=== PATIENT | male | born 1945 | race Caucasian/White ===

== ENCOUNTER 2018-11-01 08:59 | Inpatient (IN) | payer MEDICARE, OTHER ==
[2018-11-01] MEDS ORDERED: VASOTEC10 MG PO (09:06)
[2018-11-01] MEDS ORDERED: GLUCOPHAGE500 MG PO (09:06)
[2018-11-01] MEDS ORDERED: GLUCOTROL 5 MG T5 MG PO (09:06)
[2018-11-01] MEDS ORDERED: BAYER CHEWABLE81 MG PO (09:07)
[2018-11-01] MEDS ORDERED: LEXAPRO10 MG (09:07)
[2018-11-01] MEDS ORDERED: LIPITOR10 MG PO (09:07)
[2018-11-01] MEDS ORDERED: CYCLOBENZAPRINE10 MG (09:08)
[2018-11-01] MEDS ORDERED: ZOLOFT25 MG (09:08)
[2018-11-01 10:13] LABS: BASOPHILS 0.3 % (0-2); EOSINOPHILS 0.8 % (0-7); HEMATOCRIT 46.5 % (42.0-54.0); HEMOGLOBIN 16.2 g/dL (13.5-17.5); LYMPHOCYTES 9.5 % (15-50); MCH 31.2 pg (26.0-34.0); MCHC 34.8 g/dL (31.0-37.0); MCV 89.4 fL (80.0-100.0); MEAN PLATELET VOLUME 10.4 fL (7.4-10.4); MONOCYTES 8.5 % (2-11); NEUTROPHILS 79.9 % (40-80); PLATELET COUNT 168 10x3/uL (130-400); RDW 12.9 % (11.5-14.5); WBC 8.9 10x3/uL (4.8-10.8)
[2018-11-01 10:27] LABS: ALBUMIN 3.7 g/dL (3.4-5.0); ANION GAP 15.4 mmol/L (8-16); BILIRUBIN - TOTAL 0.55 mg/dL (0.2-1.3); CALCIUM 8.7 mg/dL (8.5-10.1); CARBON DIOXIDE 25.8 mmol/L (21.0-32.0); CREATININE - SERUM 1.4 mg/dL (0.6-1.3); POTASSIUM - SERUM 4.2 mmol/L (3.5-5.1); PROTEIN - SERUM 7.7 g/dL (6.4-8.2)
[2018-11-01 11:03] LABS: CKMB 0.2 U/L (0.0-3.6); CREATINE KINASE 73 UL (21-232); MAGNESIUM - SERUM 2.1 mg/dL (1.8-2.4); TROPONIN-I < 0.017 ng/mL (0.000-0.060)
[2018-11-01 11:21] LABS: APPEARANCE CLEAR (CLEAR); BILIRUBIN NEGATIVE (NEGATIVE); COLOR DARK YELLOW (YELLOW); GLUCOSE NEGATIVE (NEGATIVE); KETONE NEGATIVE (NEGATIVE); NITRITE NEGATIVE (NEGATIVE); PROTEIN 2+ mg/dL (NEGATIVE)
[2018-11-01 11:22] LABS: AMORPHOUS SEDIMENT <1+ /lpf (NONE SEEN); BACTERIA FEW /hpf (NONE SEEN); EPITHELIAL CELLS RARE /hpf (0-5)
--- NOTE | 2018-11-01 16:28 | MORECARE ---
CASE MANAGEMENT DISCHARGE SUMMARY PATIENT: MARIUM RAINES UNIT: [id number] ADM DATE: 11/01/18 AGE: 73 : 45 SEX: M ROOM/BED: D.2231 AUTHOR: MADAIDOC PHYSICIAN: REFERRING PHYSICIAN: KAVITHA CARVAJAL MD DATE OF SERVICE: 11/01/18 Discharge Plan Patient Name: MARIUM RAINES Facility: [facility]:[place] : 1945 Planned Disposition: Home Anticipated Discharge Date: 11/03/18 Discharge Date: Expected LOS: 2 Initial Reviewer: [email or web address] Initial Review Date: 11/01/2018 Generated: 11/01/18 5:28 pm DCP- Discharge Planning Updated by [email or web address]: Nicolle Mast on 11/01/18 3:[address] Patient Name: MARIUM RAINES Admission Status: ER Accout number: [id number] Admission Date: 11-01-2018 : 1945 Admission Diagnosis: Attending: KAVITHA CARVAJAL Current LOS: 1 Anticipated DC Date: 11-03-2018 Planned Disposition: Home Primary Insurance: MEDICARE A & B Discharge Planning Comments: CM met with patient to complete initial dc planning assessment. CM educated patient on the CM role and verbal consent given by patient to complete assessment. Patient lives at home with his . At discharge patient plans to return home and feels this is a safe discharge. CM discussed availability of home health, rehab services, and medical equipment. Patient denied known discharge needs at this time. CM will continue to follow and will assist as needed with dc plans/needs. Wood Drilling Machine Operator: Nicolle Mast RN, [facility] DCPIA - Discharge Planning Initial Assessment Updated by [email or web address]: Nicolle Mast on 11/01/18 4:24 pm * Is the patient Alert and Oriented? Yes * How many steps to enter\exit or inside your home? * PCP Dr. Newberry * Pharmacy [facility] * Preadmission Environment Home with Family * ADLs Independent * Equipment None * List name and contact numbers for known caregivers / representatives who currently or will assist patient after discharge: Maliha Raines - spouse - [phone] * Verbal permission to speak to the caregivers and representatives has been obtained from the patient. Yes * Community resources currently utilized None * Additional services required to return to the preadmission environment? No * Can the patient safely return to the preadmission environment? Yes * Has this patient been hospitalized within the prior 30 days at any hospital? No Patient Name: MARIUM RAINES Page [id number] at 1628 All edits/amendments must be made on the electronic document DICTATION DATE: 11/01/181627 MANAGER SALES SUPPORT: ASHVIN 11/01/181627 RPT#: [id number] DC DATE: STATUS: ADM IN [facility] [address] [place] [address] END OF REPORT
[2018-11-01 16:40] VITALS: BP 133/74; BMI 33.0
[2018-11-01 20:00] VITALS: BP 140/79
[2018-11-02 04:00] VITALS: BP 128/69
[2018-11-02 05:40] LABS: BASOPHILS 0 % (0-2); EOSINOPHILS 0 % (0-7); HEMATOCRIT 47.3 % (42.0-54.0); HEMOGLOBIN 16.3 g/dL (13.5-17.5); LYMPHOCYTES 11.1 % (15-50); MCH 30.9 pg (26.0-34.0); MCHC 34.5 g/dL (31.0-37.0); MCV 89.6 fL (80.0-100.0); MEAN PLATELET VOLUME 10.9 fL (7.4-10.4); MONOCYTES 2.2 % (2-11); NEUTROPHILS 85.7 % (40-80); PLATELET COUNT 174 10x3/uL (130-400); RBC 5.28 10x6/uL (4.20-6.10); RDW 12.7 % (11.5-14.5)
[2018-11-02 05:59] LABS: ALBUMIN 3.5 g/dL (3.4-5.0); ANION GAP 16.1 mmol/L (8-16); BILIRUBIN - TOTAL 0.35 mg/dL (0.2-1.3); CALCIUM 8.4 mg/dL (8.5-10.1); CARBON DIOXIDE 25.5 mmol/L (21.0-32.0); CREATININE - SERUM 1.4 mg/dL (0.6-1.3); POTASSIUM - SERUM 3.6 mmol/L (3.5-5.1); PROTEIN - SERUM 8.1 g/dL (6.4-8.2)
[2018-11-02 06:08] LABS: WBC 4.1 10x3/uL (4.8-10.8)
[2018-11-02 09:34] VITALS: BP 142/68; BP 144/54
[2018-11-02 13:35] VITALS: BMI 33.0
[2018-11-02 13:38] VITALS: BP 138/72
[2018-11-02 18:14] VITALS: BP 113/62
[2018-11-02 20:00] VITALS: BP 127/62
[2018-11-03 04:00] VITALS: BP 124/62
[2018-11-03 05:48] LABS: ALBUMIN 3.2 g/dL (3.4-5.0); ANION GAP 15.5 mmol/L (8-16); BILIRUBIN - TOTAL 0.3 mg/dL (0.2-1.3); CARBON DIOXIDE 24.2 mmol/L (21.0-32.0); CREATININE - SERUM 1.2 mg/dL (0.6-1.3); POTASSIUM - SERUM 3.7 mmol/L (3.5-5.1)
[2018-11-03 08:04] LABS: BASOPHILS 0.4 % (0-2); HEMATOCRIT 43.1 % (42.0-54.0); HEMOGLOBIN 14.9 g/dL (13.5-17.5); MCH 30.3 pg (26.0-34.0); MCHC 34.6 g/dL (31.0-37.0); MCV 87.8 fL (80.0-100.0); MEAN PLATELET VOLUME 10.9 fL (7.4-10.4); MONOCYTES 11.3 % (2-11); NEUTROPHILS 63.3 % (40-80); PLATELET COUNT 189 10x3/uL (130-400); RBC 4.91 10x6/uL (4.20-6.10); RDW 12.7 % (11.5-14.5)
[2018-11-03 08:08] LABS: WBC 7.3 10x3/uL (4.8-10.8)
[2018-11-03 09:37] VITALS: BP 151/69
[2018-11-03] MEDS ORDERED: FLORAJEN3 CAPS460 MG PO (09:52)
[2018-11-03] MEDS ORDERED: DOXYCYCLINE HY100 M2 PO (09:52)
[2018-11-03] MEDS ORDERED: MUCINEX DM ER1 EAC1 PO (09:52)
[2018-11-03] MEDS ORDERED: PROTONIX40 MG PO (09:52)
[2018-11-03] MEDS ORDERED: TESSALON PERLE100 MG PO (09:52)
[2018-11-03] MEDS ORDERED: OMNICEF300 MG PO (09:53)
--- NOTE | 2018-11-03 11:46 | MORECARE ---
CASE MANAGEMENT DISCHARGE SUMMARY PATIENT: MARIUM RAINES UNIT: [id number] ADM DATE: 11/01/18 AGE: 73 : 45 SEX: M ROOM/BED: D.2231 AUTHOR: SONA AJ PHYSICIAN: REFERRING PHYSICIAN: KAVITHA CARVAJAL MD DATE OF SERVICE: 11/03/18 Discharge Plan Patient Name: MARIUM RAINES Facility: [facility]:[place] : 1945 Planned Disposition: Home Anticipated Discharge Date: 11/03/18 Discharge Date: Expected LOS: 2 Initial Reviewer: [email or web address] Initial Review Date: 11/01/2018 Generated: 11/03/18 12:46 pm Comments DCP- Discharge Planning Updated by [email or web address]: Nakita Arriaga on 11/03/18 10:[address] Patient Name: MARIUM RAINES Encounter No: [id number] : 1945 Primary Insurance: MEDICARE A & B Anticipated DC Date: 11-03-2018 Planned Disposition: Home External Planned Provider: : DCP follow-up note: Patient and family in agreement with discharge plan. No changes to plan. Case management will follow and assist as needed. Nakita Arriaga DCP- Discharge Planning Updated by [email or web address]: Nicolle Mast on 11/01/18 3:[address] Patient Name: MARIUM RAINES Admission Status: ER Accout number: [id number] Admission Date: 11-01-2018 : 1945 Admission Diagnosis: Attending: KAVITHA CARVAJAL Current LOS: 1 Anticipated DC Date: 11-03-2018 Planned Disposition: Home Primary Insurance: MEDICARE A & B Discharge Planning Comments: CM met with patient to complete initial dc planning assessment. CM educated patient on the CM role and verbal consent given by patient to complete assessment. Patient lives at home with his . At discharge patient plans to return home and feels this is a safe discharge. CM discussed availability of home health, rehab services, and medical equipment. Patient denied known discharge needs at this time. CM will continue to follow and will assist as needed with dc plans/needs. Clinical Trial Head: Nicolle Mast RN, [facility] DCPIA - Discharge Planning Initial Assessment Updated by [email or web address]: Nicolle Mast on 11/01/18 4:24 pm * Is the patient Alert and Oriented? Yes * How many steps to enter\exit or inside your home? * PCP Dr. Newberry * Pharmacy Home [facility] * Preadmission Environment Home with Family * ADLs Independent * Equipment None * List name and contact numbers for known caregivers / representatives who currently or will assist patient after discharge: Maliha Raines - spouse - [phone] * Verbal permission to speak to the caregivers and representatives has been obtained from the patient. Yes * Community resources currently utilized None * Additional services required to return to the preadmission environment? No * Can the patient safely return to the preadmission environment? Yes * Has this patient been hospitalized within the prior 30 days at any hospital? No Last DP export: 11/01/18 3:28 p Patient Name: MARIUM RAINES Page 43877 at 1146 All edits/amendments must be made on the electronic document DICTATION DATE: 11/03/18 1145 CHECK WRITER: ASHVIN 11/03/18 1145 RPT#: [id number] DC DATE: STATUS: ADM IN [facility] [address] [place] [address] END OF REPORT
== END 2018-11-03 13:19 | disposition home or self-care (01) | DRG 194 ==
LOC: D.ER 08:59 → D.EDHOLD 15:49 → D.MS 15:56
PROVIDERS: Family Medicine; ADMIT Internal Medicine Nephrology
DX: J18.9 Pneumonia, unspecified organism (principal); N17.9 Acute kidney failure, unspecified; E87.1 Hypo-osmolality and hyponatremia; E11.69 Type 2 diabetes mellitus with other specified complication; D38.1 Neoplasm of uncertain behavior of trachea, bronchus and lung; F32.9 Major depressive disorder, single episode, unspecified; E66.01 Morbid (severe) obesity due to excess calories; Z68.33 Body mass index [BMI] 33.0-33.9, adult

== ENCOUNTER → 2018-12-22 10:02 | Outpatient (CLI) | payer MEDICARE, OTHER ==
[~2018-12-22 10:02] MED LIST: BAYER CHEWABLE81 MG PO; CYCLOBENZAPRINE10 MG; DOXYCYCLINE HY100 M2 PO; FLORAJEN3 CAPS460 MG PO; GLUCOPHAGE500 MG PO; GLUCOTROL 5 MG T5 MG PO; LEXAPRO10 MG; LIPITOR10 MG PO; MUCINEX DM ER1 EAC1 PO; OMNICEF300 MG PO; PROTONIX40 MG PO; TESSALON PERLE100 MG PO; VASOTEC10 MG PO; ZOLOFT25 MG
== END | disposition home or self-care (01) ==
LOC: D.CT 10:00
PROVIDERS: ATTEND Internal Medicine Pulmonary Disease
DX: J18.9 Pneumonia, unspecified organism (principal)

== ENCOUNTER 2019-08-15 08:10 | Observation (INO) | payer MEDICARE, OTHER ==
[2019-08-15] VITALS (9 sets, daily range): BP systolic 105–134; BP diastolic 56–79; Ht 177.8 cm; Wt 111.7 kg
[~2019-08-15] VITALS: Ht 177.8 cm; Wt 111.7 kg
[2019-08-15 09:08] LABS: BASOPHILS 0.3 % (0-2); EOSINOPHILS 4.1 % (0-7); HEMATOCRIT 39.4 % (42.0-54.0); HEMOGLOBIN 13.5 g/dL (13.5-17.5); IMMATURE GRANULOCYTES 0.7 % (0-5); LYMPHOCYTES 11.2 % (15-50); MCH 31.3 pg (26.0-34.0); MCHC 34.3 g/dL (31.0-37.0); MCV 91.2 fL (80.0-100.0); MEAN PLATELET VOLUME 10.4 fL (7.4-10.4); MONOCYTES 7.1 % (2-11); NEUTROPHILS 76.6 % (40-80); RBC 4.32 10x6/uL (4.20-6.10); RDW 12.3 % (11.5-14.5); WBC 7.7 10x3/uL (4.8-10.8)
[2019-08-15 09:21] LABS: CALC OSMOLALITY 282 mosm/kg (275-300); CALCIUM 8.3 mg/dL (8.5-10.1); CARBON DIOXIDE 22.7 mmol/L (21.0-32.0); CHLORIDE - SERUM 97 mmol/L (98-107); CREATININE - SERUM 1.6 mg/dL (0.6-1.3); POTASSIUM - SERUM 3.8 mmol/L (3.5-5.1); SODIUM 133 mmol/L (136-145); UREA NITROGEN 43 mg/dL (7-18); eGFR NON AFRICAN AMERICAN 45 mL/min (90-120)
[2019-08-15 09:24] LABS: PLATELET COUNT 118 10x3/uL (130-400)
[2019-08-15 09:27] LABS: GLUCOSE 212 mg/dL (74-106)
[2019-08-15 09:39] LABS: ALBUMIN 3.3 g/dL (3.4-5.0); ALKALINE PHOSPHATASE 83 U/L (30-120); ALT (SGPT) 32 U/L (10-68); BILIRUBIN - TOTAL 0.91 mg/dL (0.2-1.3); CKMB 0.4 U/L (0.0-3.6); CREATINE KINASE 55 UL (21-232); PRO BNP 363 pg/mL (0-125); PROTEIN - SERUM 7.1 g/dL (6.4-8.2); TROPONIN-I < 0.017 ng/mL (0.000-0.060)
--- NOTE | 2019-08-15 09:50 | NUR ---
PT REPORTS INTERMITTANT CHEST PAIN THAT HE DESCRIBES "HEAVINESS" THAT WAKES HIM FROM SLEEP. PT ALSO REPORTS THAT HE HAS HAD EPISODES OF NAUSEA AND VOMITING WELL GENERAL MALAISE.
[2019-08-15 09:57] LABS: APPEARANCE CLEAR (CLEAR); BILIRUBIN NEGATIVE (NEGATIVE); COLOR YELLOW (YELLOW); GLUCOSE NEGATIVE (NEGATIVE); KETONE NEGATIVE (NEGATIVE); NITRITE NEGATIVE (NEGATIVE); PROTEIN TRACE mg/dL (NEGATIVE); RED CELLS - URINE OCC /hpf (0-5); UROBILINOGEN NORMAL (NORMAL); WHITE CELLS - URINE OCC /hpf (NEGATIVE)
[2019-08-15 09:58] LABS: BACTERIA FEW /hpf (NEGATIVE); EPITHELIAL CELLS 0-5 /hpf (0-5)
[2019-08-15] MEDS ORDERED: VASOTEC10 MG PO (10:31)
--- NOTE | 2019-08-15 11:11 | NUR ---
PT NS INFUSING UPON TRANSFER TO FLOOR
[2019-08-15 11:27] LABS: CKMB 0.2 U/L (0.0-3.6); CREATINE KINASE 56 UL (21-232)
[2019-08-15 11:30] LABS: TROPONIN-I < 0.017 ng/mL (0.000-0.060)
--- NOTE | 2019-08-15 14:25 | NUR ---
PT ARRIVED TO ROOM VIA WHEELCHAIR FROM E.R. PT A&O, CONVERSANT. AT SIDE. ABLE TO TRANSFER SELF FROM CHAIR TO BED. PLACED ON BEDSIDE MONITORING. ORIENTED TO UNIT. TAKING BELONGINGS HOME EXCEPT HIS BLACK IPHONE, GOLD [place] BAND, SILVER/[place] BAND. SECURITY PIN PROVIDED TO ALONG WITH COPY OF VISITATION SCHEDULE. BED LOW CALL LIGHT IN REACH.
--- NOTE | 2019-08-15 16:28 | NUR ---
PT UP TO URINATE. 350 CLEAR CONCENTRATED URINE. PEDIGREE TRACER NOW AT BEDSIDE FOR BLOOD DRAW.
[2019-08-15 17:09] LABS: CKMB 0.8 U/L (0.0-3.6); CREATINE KINASE 38 UL (21-232); TROPONIN-I 0.032 ng/mL (0.000-0.060)
--- NOTE | 2019-08-15 19:00 | NUR ---
REPORT RECEIVED. PT RESTING IN BED, AAOX4. NO ACUTE DISTRESS NOTED. PIV IN LT HAND INFUSING, SEE IV FLOWSHEET. ASSESSMENT COMPLETED, SEE FLOWSHEET. WILL CONTINUE TO MONITOR.
[2019-08-15 20:45] LABS: APPEARANCE CLEAR (CLEAR); BILIRUBIN NEGATIVE (NEGATIVE); COLOR YELLOW (YELLOW); GLUCOSE NEGATIVE (NEGATIVE); KETONE NEGATIVE (NEGATIVE); NITRITE NEGATIVE (NEGATIVE); PROTEIN TRACE mg/dL (NEGATIVE); SPECIFIC GRAVITY 1.015 (1.005-1.020); UROBILINOGEN NORMAL (NORMAL)
--- NOTE | 2019-08-15 21:00 | NUR ---
PT RESTING IN BED, PM MEDS TAKEN WITHOUT DIFFICULTY. WILL CONTINUE TO MONITOR.
--- NOTE | 2019-08-15 23:00 | NUR ---
PT RESTING IN BED, C/O SLIGHT HEADACHE. WILL CONTINUE TO MONITOR.
[2019-08-15 23:12] LABS: CKMB 0.5 U/L (0.0-3.6); CREATINE KINASE 65 UL (21-232)
[2019-08-15 23:13] LABS: TROPONIN-I < 0.017 ng/mL (0.000-0.060)
--- NOTE | 2019-08-16 01:00 | NUR ---
PT RESTING IN BED, NO ACUTE DISTRESS NOTED. WILL CONTINUE TO MONITOR.
--- NOTE | 2019-08-16 02:10 | NUR ---
PT PULLED OUT PIV ON ACCIDENT, NEW PIV INITIATED IN LEFT WRIST. OLD CATH TIP INTACT AND DISPOSED OF.
--- NOTE | 2019-08-16 03:00 | NUR ---
PT RESTING IN BED, NO ACUTE DISTRESS NOTED.
--- NOTE | 2019-08-16 05:00 | NUR ---
PT SITTING UP IN BED, NO ACUTE DISTRESS NOTED. WILL CONTINUE TO MONITOR.
[2019-08-16 05:57] LABS: CALCIUM 7.8 mg/dL (8.5-10.1); CARBON DIOXIDE 24.2 mmol/L (21.0-32.0); CREATININE - SERUM 1.4 mg/dL (0.6-1.3); POTASSIUM - SERUM 4.2 mmol/L (3.5-5.1)
[2019-08-16 06:01] LABS: BASOPHILS 0.3 % (0-2); EOSINOPHILS 8.2 % (0-7); HEMATOCRIT 37.9 % (42.0-54.0); HEMOGLOBIN 12.8 g/dL (13.5-17.5); IMMATURE GRANULOCYTES 0.8 % (0-5); LYMPHOCYTES 19.9 % (15-50); MCH 30.5 pg (26.0-34.0); MCHC 33.8 g/dL (31.0-37.0); MCV 90.5 fL (80.0-100.0); MONOCYTES 7.4 % (2-11); NEUTROPHILS 63.4 % (40-80); PLATELET COUNT 125 10x3/uL (130-400); RBC 4.19 10x6/uL (4.20-6.10); RDW 12.2 % (11.5-14.5); WBC 6.3 10x3/uL (4.8-10.8)
[2019-08-16 07:00] VITALS: BP 128/71
--- NOTE | 2019-08-16 07:43 | NUR ---
REPORT RECEIVED. PT RESTING QUIETLY WITH EYES CLOSED. NO DISTRESS NOTED. VSS. CALL LIGHT IN REACH.
--- NOTE | 2019-08-16 09:32 | NUR ---
STEPHON FROM [facility] CAME IN AND SPOKE WITH PATIENT ABOUT PROCEDURE. PT INDICATES UNDERSTANDS PLAN AND SIGNED CONSENT. MORNING MEDICATIONS GIVEN.
--- NOTE | 2019-08-16 10:38 | NUR ---
PT BEING ESCORTED OFF UNIT IN WHEELCHAIR TO IMAGING
--- NOTE | 2019-08-16 11:25 | CN ---
PATIENT NAME:MARIUM RAINES MEDICAL RECORD: [id number] : [birth year] LOCATION:[id number] ADMIT DATE: 08/15/19 ACCOUNT: [id number] CONSULTING PHYSICIAN: ESTHER DARNELL MD REFERRING PHYSICIAN: KAVITHA CARVAJAL MD DATE OF CONSULTATION: 08/15/2019 DIAGNOSES: 1. Chest pain. 2. Shortness of breath. 3. Fever. HISTORY OF PRESENT ILLNESS: This is a gentleman who presents with fevers of unknown etiology. He has been febrile up to 102. Even though now he is 98.8. He as well has been having chest pain and shortness of breath. He has an elevated D-dimer, normal troponin. EKG is overall normal. He has no history of ischemic heart disease. He has had no recent cardiac workup. PHYSICAL EXAMINATION: CONSTITUTIONAL/GENERAL APPEARANCE: Well nourished, well developed, appears stated age. EYES: Lids and conjunctivae noninjected. No discharge. No pallor. ENT: Lips within normal limit. No cyanosis. No pallor. NECK: Carotid arteries, bilateral normal upstroke. No bruits. No thrills. No jugular venous pressure or distention. CERVICAL LYMPH NODES: Nontender. Nonenlarged. THYROID: Not enlarged. No nodules. CARDIOVASCULAR: Precordial exam, nondisplaced. No heaves or pericardial thrills. Rate and rhythm, regular. Heart sounds, normal S1, normal S2. No S3, no gallop, no rub. Systolic murmur, not heard. Diastolic murmur, not heard. RESPIRATORY: Respiratory effort, unlabored. Normal curvature. No thoracic deformity. No chest wall tenderness. Percussion, resonant. Auscultation, clear. No wheezes, no rales, no rhonchi. ABDOMEN: Soft, nondistended, nontender. No abdominal pain, no vomiting and normal appetite. MUSCULOSKELETAL: No joint tenderness, normal gait, normal tone. SKIN: Warm and dry. OVERALL IMPRESSION: Chest pain of unknown etiology. Risk stratify with stress testing Cardiolite imaging. Further care depends on the stress test. His creatinine is 1.6. Due to the elevated D-dimer, we will get a V/Q scan as well. TRANSINT:[id number] Voice Confirmation ID: [id number] DOCUMENT ID: [id number] ESTHER DARNELL MD at 1125 CC: [id number] DICTATION DATE: 08/15/19 1155 AUTO CLUB TRAVEL COUNSELOR: 08/15/19 1213 ADM IN [place] [id number] [place] [id number]
[2019-08-16 13:15] VITALS: BP 97/81
--- NOTE | 2019-08-16 14:27 | NUR ---
pt off unit for cta
--- NOTE | 2019-08-16 18:40 | MORECARE ---
CASE MANAGEMENT DISCHARGE SUMMARY PATIENT: ERROL RAINES UNIT: [id number] ADM DATE: 08/15/19 AGE: 74 : 45 SEX: M ROOM/BED: D.2309 AUTHOR: SONA AJ PHYSICIAN: REFERRING PHYSICIAN: KAVITHA CARVAJAL MD DATE OF SERVICE: 08/16/19 Discharge Plan Patient Name: ERROL RAINES [facility] [facility] 1945 Planned Disposition: Anticipated Discharge Date: Discharge Date: 08/16/2019 Expected LOS: Initial Reviewer: [email or web address] Initial Review Date: 08/16/2019 Generated: 08/16/19 7:40 pm Coverage Notice Reviewer: [email or web address] Mirela Hoyt Notice Issued Date-Time: 08/15/2019 10:50 Notice Type: Medicare Outpatient Observation Notice Notice Delivered To: Patient Relationship to Patient: Self Dry Kiln Operator Helper Name: Errol Raines Delivery Method: HAND - Hand Delivered Albertina Days: Prior Verbal Notification: Recipient Understood Notice: Yes Recipient Signature: Yes Med Rec Note Co-signed by Attending: Coverage Notice Comment: PRINCE delivered to and signed by patient. Original given to patient and one placed on chart. Patient Name: ERROL RAINES Page 32161 at 1840 All edits/amendments must be made on the electronic document DICTATION DATE: 08/16/19 184 PLANNING ADVISOR: ASHVIN 08/16/19 184 RPT#: [id number] DC DATE:08/16/19 STATUS: DIS IN [facility] [address] [place] [address] END OF REPORT
--- NOTE | 2019-08-18 12:54 | ST ---
PATIENT:MARIUM RAINES MEDICAL RECORD: [id number] SEX: M [facility] ORDER #: ADMISSION DATE: 08/15/19 AGE OF PATIENT: 74 REFERRING PHYSICIAN: INTERPRETING PHYSICIAN: ESTHER DARNELL MD DATE OF SERVICE: 08/16/2019 PROCEDURE: Nuclear stress test. INDICATION: Chest pain compatible with angina. TECHNIQUE: He was exercised on standard Lexiscan protocol with 32 mCi of sestamibi injected at peak stress, 12 mCi used previously for rest images. FINDINGS: Gated SPECT reveals preserved ejection fraction at 53% with good wall motion and thickening and brightening throughout all segments. SPECT imaging Cardiolite was used as myocardial perfusion agent. There is reversibility inferiorly as well as lateral leads includes the basal, mid, apical, inferior segments as well as apical lateral, mid lateral, basal lateral segments. The degree of reversibility is mild. The amount of myocardium involved is large. OVERALL IMPRESSION: This is an intermediate risk abnormal nuclear stress test with a relatively large amount of myocardium involved with reversibility inferiorly and laterally, possibly suggestive of multivessel coronary artery disease. TRANSINT:[id number] Voice Confirmation ID: [id number] DOCUMENT ID: [id number] ESTHER DARNELL MD at 1254 CC: [id number] DICTATION DATE: 08/16/19 1551 PIGEON FANCIER: 08/17/19 0727 DIS IN 08/16/19 [place] [id number] [place] [address]
--- NOTE | 2019-08-18 12:54 | DS ---
PATIENT:MARIUM RAINES :45 MEDICAL RECORD: [id number] DISCHARGE SUMMARY ADMISSION DATE: 08/15/19 DISCHARGE DATE: 08/16/19 DIAGNOSES: 1. Angina. 2. Abnormal nuclear stress test. 3. Hypertension. 4. Hyperlipidemia. HOSPITAL COURSE: Mr. Raines has no history of ischemic heart disease. He presents with anginal symptomatology, underwent stress testing revealing reversible ischemia laterally and inferiorly. He wanted to go home and proceed with coronary angiography tomorrow as an outpatient. He has had no further chest pain since admission. We will discharge home. He will return to the Emergency Room tonight if he has recurrent chest pain. Otherwise, we will see him tomorrow for outpatient cardiac catheterization. TRANSINT:[id number] Voice Confirmation ID: [id number] DOCUMENT ID: [id number] ESTHER DARNELL MD at 1254 CC: [id number] DICTATION DATE: 08/16/19 1559 ACCOUNTING MANAGER ASSISTANT CONTROLLER: 08/17/19 0732 DIS IN 08/16/19 [place] [id number] [place] [id number]
== END 2019-08-16 16:36 | disposition home or self-care (01) ==
LOC: D.ER 08:10 → D.ICU 10:39 → OBSVTIME 08-16 16:14 → D.ICU 08-16 16:36
PROVIDERS: Family Medicine; ADMIT Internal Medicine Nephrology; ATTEND Internal Medicine Nephrology
DX: I20.9 Angina pectoris, unspecified (principal); I10 Essential (primary) hypertension; R94.30 Abnormal result of cardiovascular function study, unspecified; N17.9 Acute kidney failure, unspecified; E66.9 Obesity, unspecified; E78.5 Hyperlipidemia, unspecified; E11.9 Type 2 diabetes mellitus without complications; E87.1 Hypo-osmolality and hyponatremia; D47.3 Essential (hemorrhagic) thrombocythemia

== ENCOUNTER 2019-08-17 07:45 | Outpatient (CLI) | payer MEDICARE, OTHER ==
[~2019-08-17] VITALS: Ht 177.8 cm; Wt 109.1 kg
--- NOTE | ~2019-08-17 | HEMODYNAMI ---
PATIENT:MARIUM RAINES MEDICAL RECORD: [id number] : 45 LOCATION:[facility] ADMISSION DATE: 08/17/19 Generatedon:08/17/201910:19 Patient name: MARIUM RAINES Patient #: [id number] SSN: [id number] : 1945 Date of study: 08/17/2019 Page: Of Hemodynamic Procedure Report Patient Data Patient Demographics Procedure consent was obtained First Name: MARIUM Gender: Male Last Name: OLU : 1945 Middle Initial: NADEEN Age: 74 year(s) Patient #: [id number] Race: SSN: [id number] Additional ID: [id number] Contact details [address]: [address] [place] [address] [facility] State: [place] City: [place] Zip code: [address] Admission Admission Data Admission Date: 08/17/2019 Admission Time: 10:00 Arrival Date: 08/17/2019 Arrival Time: 0:00 Insurance Payor: Medicare [facility] #: [id number] Height (in.): 70.08 BSA: 2.26 (m2) Height (cm.): 178 BMI: 34.4 (kg/m2) Weight (lbs.): 240.31 Weight (kg.): 109 Lab Results Lab Result Date: 08/17/2019 Lab Result Time: 0:00 Biochemistry Name Units Result Min Max BUN mg/dl 28 --(----)-* 7 18 Creatinine mg/dl 1.3 --(---*)-- 0.6 1.3 eGFR ml/min 57 *-(----)-- 90 120 NONAFRICAN CBC Name Units Result Min Max Hematocrit % 39.8 -*(----)-- 42 54 Hemoglobin g/dl 13.8 --(*---)-- 13.5 17.5 Procedure Procedure Types Cath Procedure Diagnostic Procedure C [facility] w/Coronaries Sedation Charges Moderate Sedation up to 15 minutes Procedure Description Procedure Date Procedure Date: 08/17/2019 Procedure Start Time: 10:08 Procedure End Time: 10:17 Procedure Staff Name Function Dawood Suero MD Performing Physician Kyrie Rodriguez RT Monitor Donna Serna RT Scrub Cammy Corarl RN Nurse Indication Angina Procedure Data Cath Procedure Fluoroscopy Diagnostic fluoroscopy Total fluoroscopy Time: 1.8 time: 1.8 min min Diagnostic fluoroscopy Total fluoroscopy dose: dose: 279.24 mGy 279.24 mGy Contrast Material Contrast Material Type Amount (ml) Isovue 370 62 Entry Location Entry Primary Successful Side Size Upsize Upsize Entry Closure Tovar ccessful Closure Location (Fr) 1 (Fr) 2 (Fr) Remarks Device Remarks Radial Right 6 Fr Mechanical artery Short Compression Estimated blood loss: 10 ml Diagnostic catheters Device Type Used For End Catheter Placement DIAGNOSTIC [place] 110cm 5 Procedure Fr catheter ([id number]) Procedure Complications No complications Procedure Medications Medication Administration Route Dosage 0.9% NaCl I.V. 100 ml/hr Lidocaine 2% added to field 20 Heparin Flush Bag added to field 2 bags (1000units/500ml NS) Oxygen NC 3 l/min Versed I.V. 1 mg Fentanyl I.V. 50 mcg Versed I.V. 1 mg Fentanyl I.V. 50 mcg Hemodynamics Rest BSA: 2.26 (m2) O2 Consumption: Estimated: 271.06 (ml/min) O2 Consumption indexed : Estimated:119.94 (ml/min/m) Heart Rate: 83 (bpm) Pressure Samples Time Site Value (mmHg) Purpose Heart Use Rate(bpm) 10:13 AO 93/44(60) Snapshot 83 Snapshots Pre Cath Intra NCS Post Cath Vital Signs Time Heart Resp SPO2 etCO2 NIBP (mmHg) Rhythm Pain Sedation Rate (ipm) (%) (mmHg) Status Level (bpm) 9:42:04 74 16 96 27.7 130/64(98) NSR (Missing) 10(A) 9:46:14 73 13 97 29.9 129/85(113) NSR (Missing) 10(A) 9:50:26 72 19 95 22.4 126/76(102) NSR (Missing) 10(A) 9:54:40 74 15 94 32.9 125/69(96) NSR (Missing) 10(A) 9:58:51 77 17 94 31.4 119/71(98) NSR (Missing) 10(A) 10:03:03 72 14 95 29.2 129/68(92) NSR (Missing) 10(A) 10:07:17 76 14 94 31.4 124/68(92) NSR (Missing) 9(A) 10:11:25 84 17 93 28.5 117/73(92) NSR (Missing) 9(A) 10:15:35 81 16 93 30 120/70(91) NSR (Missing) 10(A) Medications Time Medication Route Dose Verified Delivered Reason Notes Effe ctiveness by by 9:41:15 0.9% NaCl I.V. 100 Dawood Cammy used for ml/hr Pio Corral motor vehicle dispatcher 9:41:24 Lidocaine 2% added 20ml Dawood Cammy for local to vial Pio Corral anesthetic field RN 9:41:36 Heparin Flush added 2 Dawood Cammy used for Bag to bags Pio Corral procedure (1000units/500ml field RN NS) 9:41:46 Oxygen NC 3 Dawood Cammy for low 02 l/min Pio Simonsor sats RN 10:03:41 Versed I.V. 1 mg Dawood Cammy for Pio Corral sedation RN 10:03:53 Fentanyl I.V. 50 Dawood Cammy for mcg Pio WAHL Shayna sedation RN 10:09:02 Versed I.V. 1 mg Dawood Cammy for Pio Flahertyelor sedation RN 10:09:06 Fentanyl I.V. 50 Dawood Cammy for mcg Pio WAHL Shayna sedation knot tier Log Time Note 9:15:04 Kyrie Rodriguez RT(R) sent for patient. Start room use. 9:27:49 Informed consent obtained and on chart 9:28:53 Indication : Angina 9:29:01 Procedure Status Elective Heart Cath (OP). 9:29:07 Time tracking: Regular hours (M-F 7:00 - 5:00) 9:29:14 Plan of Care:Hemodynamics will remain stable., Cardiac rhythm will remain stable., Comfort level will be maintained., Respiratory function will remain adequate., Patient/ family verbilizes understanding of procedure., Procedure tolerated without complication., Recovers from procedure without complications.. 9:31:35 Lab Result : BUN 28 mg/dl 9::35 Lab Result : Hemoglobin 13.8 g/dl :: Lab Result : Hematocrit 39.8 % :: Lab Result : Creatinine 1.3 mg/dl ::35 Lab Result : eGFR NONAFRICAN 57 ml/min 9:31:56 Diagnostic Cath Status : Elective 9:33:04 Arrival Date: 08/17/2019 12:00:00 AM 9:33:30 Insurance Payor : Medicare 9:33:35 Patient Height : 70.08 inches 9:33:40 Patient Weight : 240.31 lbs 9:34:10 ACC Patient presents with Stable Angina CCS Anginal Class 2--Slight limitation of ordinary activity. 9:34:18 Patient received from Pre/Post Procedure Room to CCL 3 Alert and oriented. Tansferred to table in Supine position. 9:34:22 Warm blankets applied, and carlos hugger turned on for patient comfort. 9:34:22 Correct patient and procedure confirmed by team. 9:34:23 ECG and BP/O2 sat monitors applied to patient. 9:40:59 Vital chart was started 9:41:15 0.9% NaCl 100 ml/hr I.V. was administered by Cammy Corral RN; used for procedure; Verbal order read back and verified. 9:41:24 Lidocaine 2% 20ml vial added to field was administered by Cammy Corral RN; for local anesthetic; Verbal order read back and verified. 9:41:36 Heparin Flush Bag (1000units/500ml NS) 2 bags added to field was administered by Cammy Corral RN; used for procedure; Verbal order read back and verified. 9:41:46 Oxygen 3 l/min NC was administered by Cammy Corral RN; for low 02 sats; Verbal order read back and verified. 9:55:39 Rhythm: sinus rhythm 9:55:49 Full Disclosure recording started 9:55:54 H&P Date Dictated: 08/17/2019 New H&P dictated by physician.. 9:55:56 Pre-procedure instructions explained to patient. 9:55:56 Pre-op teaching completed and patient verbalized understanding. 9:55:59 Family in patients room. 9:56:01 Patient NPO since Midnight. 9:56:04 Is the patient allergic to Iodine/contrast media? No. 9:56:06 Is patient on blood thinner?No 9:56:09 ACC The patient was administered the following blood thiners within the last 24 hours: None 9:56:11 Patient diabetic? Yes. 9:56:12 If diabetic: On Metformin? Yes 9:56:52 If on Metformin: Last Dose? 08/17/2019 10:00:19 Previous problem with sedation/anesthesia? No ? 10:00:20 Snore? Yes 10:00:21 Sleep apnea? No 10:00:22 Deviated septum? No 10:00:23 Opens mouth fully? Yes 10:00:24 Sticks out tongue? Yes 10:00:26 Airway obstruction? No ? 10:00:28 Dentures? No ? 10:00:31 Pre procedure: right dorsailis pedis pulse 1+ Palpable, but thready & weak; easily obliterated 10:00:35 Modified Shamar's test Ulnar < 7 seconds 10:00:38 Patient pain scale 0/10 ?. 10:00:48 IV patent on arrival in left forearm with 0.9% NaCl at [facility]. 10:00:50 Lab results completed and on chart. 10:02:40 Stress Test: yes; normal inferior and lateral 10:02:58 Right Radial & Right Groin area was prepped with chlora-prep and draped in sterile fashion 10:02:59 Alarms reviewed by R. N. 10:02:59 Sharps counted by scrub and verified by R.N. 10:03:01 Physician arrived 10:03:02 --------ALL STOP TIME OUT------ 10:03:02 Final Timeout: patient, procedure, and site verified with staff and physician. All members of the team are in agreement. 10:03:04 Right Radial & Right Groin site verified by team. 10:03:08 Fire Safety Assessment: A--An alcohol-based skin anteseptic being used preoperatively., C--Open oxygen or nitrous oxide is being used., D--An ESU, laser, or fiber-optic light is being used. 10:03:12 Physical assessment completed. ASA score P 2 - A patient with mild systemic disease as per Dawood Suero MD. 10:03:16 3a) 45-59 Moderately reduced kidney function. 10:03:19 Maximum allowable contrast dose (3.7 X eGFR X 0.75)159 ml. 10:03:23 Sedation plan: IV Moderate Sedation Medication:Versed, Fentanyl 10:03:41 Versed 1 mg I.V. was administered by Cammy Corral RN; for sedation; Verbal order read back and verified. 10:03:53 Fentanyl 50 mcg I.V. was administered by Cammy Corral RN; for sedation; Verbal order read back and verified. 10:05:12 Zero performed for pressure channel P1 10:05:18 Risk of Mortality: 0.1 10:05:21 Risk of blood transfusion: 0.3 10:05:24 Risk of JT: 0.6 10:05:28 Use device set Radial Dx or PCI 10:05:29 Tegaderm 4 x 4 (1626W) opened to sterile field. 10:05:30 ACIST Syringe (76543) opened to sterile field. 10:05:31 Medline Cath Pack ([id number]) opened to sterile field. 10:05:31 Bag Decanter (2002S) opened to sterile field. 10:05:31 ACIST Hand Control (82554) opened to sterile field. 10:05:32 ACIST Manifold (51977) opened to sterile field. 10:05:32 MBrace Wrist Support ([id number]) opened to sterile field. 10:05:34 SHEATH 6FR RAIN (5488622) opened to sterile field. 10:05:35 EMERALD Guide Wire (339-171) opened to sterile field. 10:07:57 Procedure started. 10:08:03 Local anesthetic to right radial artery with Lidocaine 2% by Dawood Suero MD.INITIAL ACCESS ONLY 10:09:01 A 6 Fr Short sheath was inserted into the Right Radial artery 10:09:02 Versed 1 mg I.V. was administered by Cammy Corral RN; for sedation; Verbal order read back and verified. 10:09:06 Fentanyl 50 mcg I.V. was administered by Cammy Corral RN; for sedation; Verbal order read back and verified. 10:09:29 A DIAGNOSTIC [place] 110cm 5 Fr catheter (527574) was advanced over the wire and used for Procedure. 10:10:17 LV angiography performed. 10:10:22 LV gram done using HOWELL 10:10:28 EF : 60 % 10:11:04 Injector settings: Ml/sec: 5, Volume: 15, 10:11:26 RCA angiography performed. 10:12:24 Catheter exchanged over wire. 10:12:39 GUIDE 6FR EBU 3.5 catheter ([id number]) opened to sterile field. 10:12:56 6 Fr EBU 3.5 guide catheter was inserted over the wire 10:13:20 LCA angiography performed. 10:13:27 ACCDominant side:Co-Dominant 10:14:06 Catheter exchanged over wire. 10:14:14 ZEPHYR REGULAR TR BAND (194953) opened to sterile field. 10:14:18 Procedure ended.(Physican Out) 10:14:53 Sheath removed intact; hemostasis achieved with Mechanical Compression to the Right Radial artery. 10:15:06 Fluoroscopy time 01.80 minutes. 10:15:13 Fluoroscopy dose: 279.24 mGy 10:15:13 Flurop Dose total: 279.24 10:15:18 Dose Area Product 1922.83 mGy/cm. 10:15:23 Contrast amount:Isovue 370 62ml. 10:15:24 Maximum allowable dose exceeded? No. 10:15:25 Sharps counted by scrub and verified by R.N. 10:15:26 Insertion/operative site no bleeding no hematoma. 10:15:28 Seguin band inflated with 10cc of air. 10:15:30 Post Procedure Pulses reassessed and unchanged 10:15:32 Post-procedure physical assessment completed. ASA score P 2 - A patient with mild systemic disease as per Dawood Suero MD. 10:15:35 Post procedure rhythm: unchanged. 10:15:38 Estimated blood loss: 10 ml 10:15:39 Post procedure instruction explained to patient.Patient verbalizes understanding. 10:15:39 Patient needs reinforcement of post procedure teaching. 10:16:16 Procedure type changed to Cath procedure, Diagnostic procedure, LHC, [facility] w/Coronaries, Sedation Charges, Moderate Sedation up to 15 minutes 10:16:31 Procedure and supply charges have been captured, reviewed, submitted and are correct. 10:16:33 Procedure Complication : No complications 10:17:11 Vital chart was stopped 10:17:13 [facility] Findings: mild to moderate CAD (<70%) 10:17:14 Operative report dictated upon procedure completion. 10:17:14 See physician's report for complete and final results. 10:17:17 Report given to Pre/Post Procedure Room. 10:17:20 Patient transfered to Pre/Post Procedure Room with Stretcher. 10:17:22 Procedure ended. 10:17:22 Full Disclosure recording stopped 10:17:44 End room use (Document Last) 10:18:17 End room use (Document Last) 10:18:36 End room use (Document Last) Device Usage Item Name Manufacture Quantity Catalog Hospital Part Current Minima l Lot# / Number Charge Number Stock Stock Serial# Code Tegaderm 4 3M 1 1626W [id number] [id number] [id number] 5 x 4 (1626W) ACIST Acist 1 04118 712047 579630 577060 20 Syringe Medical (93336) Systems Inc Medline Medline 1 [id number] 004163 05890 364244 5 Cath Pack ([id number]) Bag Microtek 1 008374 27861 630396 5 Decanter Medical Inc. () ACIST Hand Acist 1 51791 825851 281479 794987 5 Control Medical (89308) Systems Inc ACIST Acist 1 30190 413016 299651 361706 5 Manifold Medical (89619) Systems Inc MBrace Advanced 1 140-0250-00 554604 56443 884154 5 Wrist Vascular Support Dynamics ([id number]) SHEATH 6FR Cardinal 1 9195723 101245 7976943 350990 5 RAIN Health (9206014) EMERALD Cardinal 1 502455 321231 296238 758633 5 Guide Wire Health (915-131) DIAGNOSTIC Terumo 1 98-2072 166622 016818 839309 5 [place] 110cm 5 Fr catheter (539172) GUIDE 6FR Medtronic 1 [id number] 092005 17701 885608 3 EBU 3.5 catheter ([id number]) ZEPHYR Cardinal 1 759606 798185 7593074 313000 5 REGULAR TR Health BAND (055423) Signature Audit [employer] Stage Time Signature Unsigned Intra-Procedure 08/17/2019 Kyrie Rodriguez 10:18:17 AM RT(R) Intra-Procedure 08/17/2019 Cammy 10:18:36 AM Shayna RN Intra-Procedure 08/17/2019 Dawood Suero 10:19:22 AM [place] [address] [address] [place] [address]
[2019-08-17 08:27] VITALS: BP 146/77; Ht 177.8 cm; Wt 109.1 kg
[2019-08-17 08:53] LABS: BASOPHILS 0.6 % (0-2); EOSINOPHILS 9.4 % (0-7); HEMATOCRIT 39.8 % (42.0-54.0); HEMOGLOBIN 13.8 g/dL (13.5-17.5); IMMATURE GRANULOCYTES 1.8 % (0-5); LYMPHOCYTES 21.7 % (15-50); MCH 31.3 pg (26.0-34.0); MCHC 34.7 g/dL (31.0-37.0); MCV 90.2 fL (80.0-100.0); MEAN PLATELET VOLUME 10.6 fL (7.4-10.4); NEUTROPHILS 59.5 % (40-80); RBC 4.41 10x6/uL (4.20-6.10); RDW 12.4 % (11.5-14.5)
[2019-08-17 09:03] LABS: ANION GAP 14.1 mmol/L (8-16); CALCIUM 8.6 mg/dL (8.5-10.1); CARBON DIOXIDE 24.3 mmol/L (21.0-32.0); CHOL - HDL RATIO 5.2 ratio (2.3-4.9); CREATININE - SERUM 1.3 mg/dL (0.6-1.3); LDL-HDL RATIO 3.3 ratio (1.5-3.5); POTASSIUM - SERUM 4.4 mmol/L (3.5-5.1)
[2019-08-17 09:07] LABS: PLATELET COUNT 152 10x3/uL (130-400)
--- NOTE | 2019-08-17 10:25 | NUR ---
PT ARRIVED BY STRETCHER. PLACED ON MONITORS. ASSESSMENT COMPLETED. VSS. NO FAMILY AT BEDSIDE AT THIS TIME.
--- NOTE | 2019-08-17 10:40 | NUR ---
PT RESTING COMFORTABLY. CALL LIGHT WITHIN REACH. RIGHT WRIST Z BAND IN PLACE. NO BLEEDING/HEMATOMA NOTED. VSS.
--- NOTE | 2019-08-17 11:10 | NUR ---
HEAD OF BED INC TO 30 DEGREES. TOLERATED WELL. RIGHT WRIST BAND IN PLACE. NO BLEEDING/HEMATOMA NOTED. 2cc OF AIR REMOVED FROM BAND. TOLERATED WELL. FAMILY AT BEDSIDE. VSS. PT SET UP WITH SANDWICH TRAY AND DRINK. DENIES NAUSEA/PAIN.
--- NOTE | 2019-08-17 11:30 | NUR ---
3cc OF AIR REMOVED FROM Z BAND. TOLERATED WELL. NO BLEEDING/HEMATOMA NOTED. CALL LIGHT WITHIN REACH. FAMILY AT BEDSIDE.
--- NOTE | 2019-08-17 11:50 | NUR ---
Z BAND REMOVED AND DRESSING APPLIED. NO BLEEDING/HEMATOMA NOTED. RIGHT WRIST BRACE IN PLACE.
--- NOTE | 2019-08-17 11:55 | NUR ---
DISCUSSED DISCHARGE INSTRUCTIONS WITH PT AND PT'S FAMILY. THEY VOICED UNDERSTANDING. PIV D/C'D WITH CATH TIP INTACT. PT INSTRUCTED TO GET UP AND DRESSED AT THIS TIME.
--- NOTE | 2019-08-17 12:10 | NUR ---
PT TAKEN OUT TO VEHICLE BY WHEELCHAIR. NO S/S OF DISTRESS NOTED. ALL BELONGINGS AND PAPERWORK IN HAND. RIGHT WRIST DRESSING C/D/I. NO S/S OF HEMATOMA NOTED.
--- NOTE | 2019-08-18 12:54 | HP ---
PATIENT: MARIUM RAINES MEDICAL RECORD: [id number] ACCOUNT: [id number] LOCATION:[facility] : 45 ADMISSION DATE: 08/17/19 PCP: ROVERTO HOPPER MD HISTORY AND PHYSICAL EXAMINATION DIAGNOSES: 1. Angina. 2. Abnormal nuclear stress test. HISTORY OF PRESENT ILLNESS: Mr. Raines presents with anginal symptomatology. Risk stratify with nuclear stress testing revealing significant reversibility, now brought back for cardiac catheterization. REVIEW OF SYSTEMS: The patient reports easy bruising but reports no swollen glands. The patient reports no fever, no night sweats, no significant weight gain, no significant weight loss. No significant exercise tolerance. The patient reports no dry eyes, no irritation, no vision change. Patient reports no difficulty hearing and no ear pain. Patient reports no frequent nose bleeds or nose and sinus problems. Patient reports no arm pain on exertion. No shortness of breath while lying down. No history of heart murmur. Patient reports no cough, no wheezing or coughing up blood. Patient reports no abdominal pain, no vomiting. Normal appetite. No diarrhea and not vomiting blood. No nausea and no constipation. Patient reports no incontinence. No difficulty urinating. No hematuria. No increased frequency. Patient reports no muscle aches. No weakness, no arthralgias, no back pain. No swelling of the extremities. Patient reports no abnormal mole, no jaundice, no rashes. Reports no loss of consciousness. No weakness and no numbness. No seizures, dizziness, or headaches. The patient reports no depression, no sleep disturbance, feeling safe in a relationship and no alcohol abuse. Patient reports on fatigue. Reports no runny nose or sinus pressure. No itching, no hives, and no frequent sneezing. PHYSICAL EXAMINATION: CONSTITUTIONAL/GENERAL APPEARANCE: Well nourished, well developed, appears stated age. EYES: Lids and conjunctivae noninjected. No discharge. No pallor. ENT: Lips within normal limit. No cyanosis. No pallor. NECK: Carotid arteries, bilateral normal upstroke. No bruits. No thrills. No jugular venous pressure or distention. CERVICAL LYMPH NODES: Nontender. Nonenlarged. THYROID: Not enlarged. No nodules. CARDIOVASCULAR: Precordial exam, nondisplaced. No heaves or pericardial thrills. Rate and rhythm, regular. Heart sounds, normal S1, normal S2. No S3, no gallop, no rub. Systolic murmur, not heard. Diastolic murmur, not heard. RESPIRATORY: Respiratory effort, unlabored. Normal curvature. No thoracic deformity. No chest wall tenderness. Percussion, resonant. Auscultation, clear. No wheezes, no rales, no rhonchi. ABDOMEN: Soft, nondistended, nontender. No abdominal pain, no vomiting and normal appetite. MUSCULOSKELETAL: No joint tenderness, normal gait, normal tone. SKIN: Warm and dry. OVERALL IMPRESSION: Anginal symptomatology with abnormal risk stratification nuclear stress testing. We will proceed with coronary angiography. Further care depends upon findings of the angiography. HISTORY AND PHYSICAL [id number] MARIUM RAINES TRANSINT:[id number] Voice Confirmation ID: [id number] DOCUMENT ID: [id number] ESTHER DARNELL MD at 1254 CC: [id number] DICTATION DATE: 08/17/19924 WOUND CARE SPECIALIST: 08/17/19 1001 DEP CLI 08/17/[address] [address]
--- NOTE | 2019-08-19 10:23 | OP ---
PATIENT NAME: MARIUM RAINES MEDICAL RECORD: [id number] :45 LOCATION:D.CAT ADMISSION DATE: SURGEON: ESTHER DARNELL MD DATE OF OPERATION: 08/17/2019 DATE OF SERVICE: 08/17/2019 PROCEDURES: 1. Left heart catheterization. 2. Selective coronary angiography. 3. Left ventriculogram. INDICATION: Chest pain, abnormal nuclear stress test. PROCEDURE PERFORMED: After informed consent was obtained and after a detailed description of risks, benefits as well as alternative therapies, the patient elected to proceed with angiogram and heart catheterization. FINDINGS: The left ventriculogram was performed in standard 30-degree HOWELL view, reveals good cardiac wall motion throughout all segments. Overall ejection fraction estimated at 60%. SELECTIVE CORONARY ANGIOGRAPHY: Left main, left anterior descending, left circumflex, right coronary artery are all smooth-walled vessels with no angiographic evidence of coronary artery disease. OVERALL IMPRESSION: 1. No angiographic evidence of coronary artery disease. 2. Normal left heart pressures. 3. Normal left ventricular systolic function. TRANSINT:[id number] Voice Confirmation ID: [id number] DOCUMENT ID: [id number] ESTHER DARNELL MD at 1023 CC: [id number] DICTATION DATE: 08/18/19 1038 PAYROLL ASSOCIATE: 08/18/19 1350 DEP CLI 08/17/[address] [address]
== END 2019-08-17 12:10 | disposition home or self-care (01) ==
LOC: D.CATH 07:45
PROVIDERS: ATTEND Internal Medicine Interventional Cardiology
DX: R07.9 Chest pain, unspecified (principal); R94.39 Abnormal result of other cardiovascular function study; I20.9 Angina pectoris, unspecified